=== PATIENT | male | born 1970 | race Caucasian/White ===

== ENCOUNTER 2017-05-18 13:43 | Emergency (ER) | payer OTHER ==
[2017-05-18 13:52] VITALS: BP 142/94; PULSE 97; RESP 18; TEMP 97.2
[2017-05-18] MEDS ORDERED: DIPH,PERTUS(ACELL)TETVAC-LF 0.5 ML VIAL IM ONE (14:00)
--- NOTE | 2017-05-18 14:05 | ED ---
General Adult HPI - General Chief complaint: Skin/Abscess/Foreign Body Stated complaint: foreign body under thumb nail Time Seen by Provider: 05/18/17 13:53 Source: patient, RN notes reviewed Mode of arrival: ambulatory Limitations: no limitations - History of Present Illness Initial comments: 46-year-old male presents to the emergency department with a chief complaint of splinter in the left nail. He does not recall his last tetanus. This happened at work. He states Last hour. Patient states having throbbing in pain to that meal. Patient denies any other injuries from the incident. Patient denies any fever chills or cough cold symptoms with this. Patient denies any recent fever, chills, shortness of breath, chest pain, back pain, abdominal pain, nausea vomiting, numbness or tingling, dysuria or hematuria, constipation or diarrhea, headaches or visual changes, or any other current symptoms. - Related Data Home Medications Medication Instructions Recorded Confirmed No Known Home Medications [No 05/18/17 05/18/17 Known Home Medications] Allergies Allergy/AdvReac Type Severity Reaction Status Date / Time No Known Allergies Allergy Verified 05/18/17 13:52 Review of Systems ROS Statement: Those systems with pertinent positive or pertinent negative responses have been documented in the HPI. ROS Other: All systems not noted in ROS Statement are negative. Past Medical History Past Medical History: No Reported History History of Any Multi-Drug Resistant Organisms: None Reported Past Surgical History: No Surgical Hx Reported Past Psychological History: No Psychological Hx Reported Smoking Status: Never smoker Past Alcohol Use History: Rare Past Drug Use History: None Reported General Exam - General Exam Comments Initial Comments: General: The patient is awake and alert, in no distress, and does not appear acutely ill. Neck: The neck is supple, there is no tenderness. Cardiovascular: There is a regular rate and rhythm. No murmur, rub or gallop is appreciated. Respiratory: Lungs are clear to auscultation, respirations are non-labored, breath sounds are equal. No wheezes, stridor, rales, or rhonchi. Musculoskeletal: Sensation With 2+ pulses of left upper extremity. Fund motion left hand and left digits. Patient does appear to have a foreign body under the left thumb nail. Minimal bleeding noted at this time. Neurological: CN II-XII intact, There are no obvious motor or sensory deficits. Coordination appears grossly intact. Speech is normal. Skin: Skin is warm and dry and no rashes or lesions are noted. Psychiatric: Normal mood and affect. Limitations: no limitations Course Vital Signs 05/18/17 13:51 Temperature 97.2 F L Pulse Rate 97 Respiratory 18 Rate Blood Pressure 142/94 O2 Sat by Pulse 100 Oximetry Procedures - Procedures Initial comment: It was cleaned and prepped. 3 mL of lidocaine were injected locally into the left thumb. Alligator forceps are used to excise the foreign body that was voided. Patient tolerated the procedure well. Medical Decision Making - Medical Decision Making 46-year-old male presents to the emergency Department chief complaint of left thumb foreign body. This has been removed. We discussed follow-up return parameters. We did update the patient's personal questions. He stated he understood and they're in agreement this plan. This and we will be discharged Disposition Clinical Impression: Foreign body of left thumb Disposition: HOME SELF-CARE Condition: Stable Instructions: Soft Tissue Foreign Body (ED) Additional Instructions: Please use medication as discussed. Please follow up with family doctor if symptoms have not improved over the next two days. Please return to the emergency room if your symptoms increase or worsen or for any other concerns. Referrals: Layton Lovelace MD [STAFF PHYSICIAN] - 1-2 days Time of Disposition: 14:05
== END 2017-05-18 14:29 | disposition home or self-care (01) ==
LOC: EC 13:43
DX: S60.352A Superficial foreign body of left thumb, initial encounter (principal); Z23 Encounter for immunization; W22.8XXA Striking against or struck by other objects, initial encounter
CPT/HCPCS: 10120; 90471; 90715; 99283

== ENCOUNTER → 2023-09-13 | Outpatient (CLI) | payer OTHER ==
--- NOTE | 2023-09-13 16:16 | XR ---
EXAMINATION TYPE: XR hand complete RT DATE OF EXAM: 09/13/2023 4:08 PM CLINICAL INDICATION:Male, 53 years old with history of S67.194A CRUSHING INJURY OF RIGHT RING FINGER, INI; [facility] COMPARISON: None TECHNIQUE: XR hand complete RT Frontal, lateral and oblique views were obtained. FINDINGS/IMPRESSION: The fracture of the fourth digit distal phalanx with soft tissue swelling. Mild distraction displacem ent.
== END | disposition home or self-care (01) ==
LOC: RADXRMAIN 15:57
PROVIDERS: ATTEND Emergency Medicine
DX: S62.634A Displaced fracture of distal phalanx of right ring finger, initial encounter for closed fracture (principal); M79.89 Other specified soft tissue disorders; X58.XXXA Exposure to other specified factors, initial encounter